=== PATIENT | female | born 1960 | race Hispanic/Latino ===

== ENCOUNTER 2022-08-27 05:49 | Day surgery (SDC) | payer OTHER ==
[2022-08-23 11:13] LABS: BASOPHILS % (AUTO) 0.9 % (0.0-5.0); EOSINOPHILS % (AUTO) 2.6 % (0.0-8.0); LYMPHOCYTES % (AUTO) 38.6 % (21.0-51.0); MEAN CORPUSCULAR HEMOGLOBIN 29.8 pg (27.0-33.0); MEAN CORPUSCULAR VOLUME 90.2 fL (79-99); MONOCYTES % (AUTO) 10.2 % (3.0-13.0); PLATELET COUNT (AUTO) 277 K/uL (130-400); RED CELL DISTRIBUTION WIDTH 12.7 % (11.0-15.5); WHITE BLOOD COUNT (AUTO) 5.4 K/uL (4.8-10.8)
[2022-08-23 11:17] VITALS: BP 151/78
[2022-08-27] VITALS (18 sets, daily range): BP systolic 112–144; BP diastolic 55–82
[~2022-08-27] VITALS: Ht 160 cm; Wt 93.4 kg
[~2022-08-27 05:49] MED LIST: LISI10TA24 PO
[2022-08-27] MEDS ORDERED: CEFAZOLIN SODIUM 2 GM VIAL ONE (06:02)
[2022-08-27] MEDS ORDERED: LACTATED RINGERS 1000ML 1,000 ML IV ONE (06:03)
[2022-08-27] MEDS ORDERED: CALDOLOR 800MG+NS 250ML 250 ML IV ONE (06:36)
[2022-08-27] MEDS ORDERED: MIDAZOLAM HCL 1 MG/ML 2ML VIAL ONE (07:00)
[2022-08-27] MEDS ORDERED: PROPOFOL 10 MG/ML 20ML VIAL IV ONE (07:01)
[2022-08-27] MEDS ORDERED: ROCURONIUM 10MG/1ML SYR 10 MG/ML ML ONE (07:01)
[2022-08-27] MEDS ORDERED: FENTANYL CITRATE PF 50 MCG/1 ML 2ML VIAL ONE (07:03)
[2022-08-27] MEDS ORDERED: ONDANSETRON 4MG INJ ONE (07:10)
[2022-08-27] MEDS ORDERED: MEPERIDINE-PF 25 MG/ML SYG ONE (07:15)
[2022-08-27] MEDS ORDERED: NEOSTIGMINE 5MG/5ML SYR IV ONE (07:47)
[2022-08-27] MEDS ORDERED: GLYCOPYRROLATE 1 MG/5 ML SYRINGE ONE (07:47)
== END 2022-08-27 09:45 | disposition home or self-care (01) ==
LOC: DAH 05:49
PROVIDERS: ATTEND Obstetrics & Gynecology
DX: N95.0 Postmenopausal bleeding (principal); Z20.822 Contact with and (suspected) exposure to COVID-19; R93.89 Abnormal findings on diagnostic imaging of other specified body structures; N85.4 Malposition of uterus; I10 Essential (primary) hypertension; E66.01 Morbid (severe) obesity due to excess calories; Z90.49 Acquired absence of other specified parts of digestive tract; Z83.3 Family history of diabetes mellitus; Z79.899 Other long term (current) drug therapy; Z68.36 Body mass index [BMI] 36.0-36.9, adult
CPT/HCPCS: 85025; 86850 ×2; 86900 ×2; 86901 ×2; 87426; 36415 ×2; 58558; A6260; A4663; J7030 ×2; A4351 ×2; A4355; J7120; J3010; J3490; J2710; J2250; J2704; J2405; J2175; J1741; J0690 ×2; A4215; A4223; A4222; A4221; A4600; A4510